=== PATIENT | female | born 2005 | race Caucasian/White ===

== ENCOUNTER 2024-09-15 17:48 | Emergency (ER) | payer OTHER, SELFPAY ==
[2024-09-15 17:50] VITALS: BP 132/93; PULSE 67; RESP 17; TEMP 36.4; O2SAT 100
--- NOTE | 2024-09-15 17:52 | ED.ABDPAIN ---
HPI - Abdominal Pain General Chief Complaint: Abdominal Pain <Dede Gongora PA-C - Last Filed: 09/15/24 17:53> Stated Complaint: abd pain <Dede Gongora PA-C - Last Filed: 09/15/24 17:53> Time Seen by Provider: 09/15/24 19:37 <Dede Gongora PA-C - Last Filed: 09/15/24 17:53> Focused HPI: 19-year-old female with history of asthma presents emergency department for abdominal pain that started 1 hour prior to arrival. Patient states earlier in the week she developed nausea and vomiting. Vomiting has since resolved yesterday began having diarrhea. Today she is now having diffuse abdominal pain, states earlier the pain was concentrated higher and now it seems to be lower in her abdomen. She describes the pain as a cramping and spasmodic sensation. Denies dysuria hematuria, prior abdominal surgeries, fever. GENERAL: Well-appearing, well-nourished, and in no acute distress. HEAD: Normocephalic, atraumatic. CHEST: Clear to auscultation. ?No respiratory distress. HEART: Regular rate and rhythm.? NEURO: ?Alert and oriented x3. Patient screened in triage and initial orders placed.? ?Additional care and disposition to be based upon?diagnostic testing and treatment. <Dede Gongora PA-C - Last Filed: 09/15/24 17:53> Related Data Allergies/Adverse Reactions: Allergies Allergy/AdvReac Type Severity Reaction Status Date / Time cetirizine (From Zyrtec) AdvReac Mild Itching Verified 09/15/24 20:03 fexofenadine (From Yu) AdvReac Mild Mood Verified 09/15/24 20:03 disturbances <Dede Gongora PA-C - Last Filed: 09/15/24 17:53> Exam Narrative: APPEARANCE: No apparent distress. Head: atraumatic. EYES: EOMI, NOSE: Atraumatic NECK: Trachea midline RESPIRATORY: No increased rate of breathing CTAB CARDIOVASCULAR: RRR, ABDOMINAL: Non-distended soft nontender no guarding rebound MUSCULOSKELETAl: No obvious deformities NEURO: Alert. Moving 4/4 extremities SKIN:: Warm, dry. Normal color PSYCHIATRIC: Normal affect <Puneet Chavira MD - Last Filed: 09/15/24 21:11> Course Vital Signs Vital signs: Vital Signs Temperature 97.6 F 09/15/24 17:50 Pulse Rate 67 09/15/24 17:50 Respiratory Rate 17 09/15/24 17:50 Blood Pressure 132/93 H 09/15/24 17:50 Pulse Oximetry 100 09/15/24 17:50 Oxygen Delivery Room Air 09/15/24 17:50 Temperature 97.6 F 09/15/24 17:50 Pulse Rate 67 09/15/24 17:50 Respiratory Rate 17 09/15/24 17:50 Blood Pressure 132/93 H 09/15/24 17:50 Pulse Oximetry 100 09/15/24 17:50 Oxygen Delivery Room Air 09/15/24 17:50 <Dede Gongora PA-C - Last Filed: 09/15/24 17:53> Vital Signs Temperature 97.6 F 09/15/24 17:50 Pulse Rate 67 09/15/24 17:50 Respiratory Rate 17 09/15/24 17:50 Blood Pressure 132/93 H 09/15/24 17:50 Pulse Oximetry 100 09/15/24 17:50 Oxygen Delivery Room Air 09/15/24 17:50 Temperature 97.6 F 09/15/24 17:50 Pulse Rate 67 09/15/24 17:50 Respiratory Rate 17 09/15/24 17:50 Blood Pressure 132/93 H 09/15/24 17:50 Pulse Oximetry 100 09/15/24 17:50 Oxygen Delivery Room Air 09/15/24 17:50 <Puneet Chavira MD - Last Filed: 09/15/24 21:11> MDM - Abdominal Pain MDM Narrative Medical decision making narrative: -Course: 19-year-old female presenting with 5 days of nausea vomiting diarrhea patient given symptomatic treatment. Vital signs are normal she has a benign abdominal exam. CT abdomen pelvis was or screening but after discussing with the patient is unnecessary. Patient is in agreement. Patient be discharged Zofran and Bentyl. -DDX includes but is not limited to: Gastroenteritis, viral syndrome appendicitis gallbladder disease colitis <Puneet Chavira MD - Last Filed: 09/15/24 21:11> Lab Data Result diagrams: 09/15/24 18:25 09/15/24 18:25 <Dede Gongora PA-C - Last Filed: 09/15/24 17:53> Labs: Lab Results 09/15/24 09/15/24 09/15/24 Range/Units 18:25 18:32 18:33 WBC 8.8 (4.5-10.0) K/mm3 RBC 4.36 (4.2-5.4) M/mm3 Hgb 14.1 (12.0-15.0) g/dL Hct 40.4 (37.0-47.0) % MCV 92.7 (80-100) fl MCH 32.3 (26-34) pg MCHC 34.9 (32-36) g/dl RDW 11.8 (11.5-14.5) % Plt Count 349 (150-375) k/mm3 MPV 9.4 (7.4-10.4) fl Immature Gran % (Auto) 0.3 (0-0.5) % Neut % (Auto) 64.5 (45.5-73.1) % Lymph % (Auto) 23.1 (18.3-44.2) % [place] % (Auto) 6.6 (2.6-8.5) % Eos % (Auto) 4.6 H (0-4.4) % Baso % (Auto) 0.9 (0.2-1.2) % Lymph # (Auto) 2.03 (0.9-3.2) K/mm3 [place] # (Auto) 0.6 (0.1-0.6) K/mm3 Eos # (Auto) 0.4 H (0-0.3) K/mm3 Baso # (Auto) 0.1 (0.0-0.1) K/mm3 Abs Immat Gran (auto) 0.03 (0.00-0.031) K/mm3 Absolute Neuts (auto) 5.7 (1.3-6.7) K/mm3 Absolute Nucleated RBC 0.000 (0.0-0.012) K/mm3 Nucleated RBC % 0.0 (0.0-0.2) % Sodium 139 (137-145) mmol/L Potassium 4.2 (3.4-5.0) mmol/L Chloride 107 (98-107) mmol/L Carbon Dioxide 16 L (22-30) mmol/L Anion Gap 16 H (4-12) mmol/L BUN 6 L (7-17) mg/dL Creatinine 0.70 (0.7-1.0) mg/dL Estim Creat Clear Calc 91 ml/min Estimated GFR > 60 (59 - ) Glucose 104 (65-110) mg/dL Calcium 9.7 (8.4-10.2) mg/dL Total Bilirubin 1.5 H (0.2-1.3) mg/dL AST 26 (14-36) U/L ALT 20 (6-35) U/L Alkaline Phosphatase 58 (38-126) U/L Total Protein 7.0 (6.3-8.2) g/dL Albumin 4.6 (3.5-5.1) g/dL Lipase 39 (23-300) U/L Urine Color Yellow (Yellow) Urine Appearance Clear (Clear) Urine pH 5.5 (5.0-9.0) Ur Specific [place] 1.020 (1.001-1.035) Urine Protein Negative (Negative) mg/dL Urine Glucose (UA) Negative (Negative) mg/dL Urine Ketones Trace H (Negative) mg/dL Ur Blood (Man) 1+ H (Negative) Urine Nitrate Negative (Negative) Urine Bilirubin Negative (Negative) Urine Urobilinogen 0.2 (<2.0) mg/dL Leukocyte Esterase Rfl Negative (Negative) RENEE/UL Urine RBC 0-2 (0-2) /hpf Urine WBC 0-5 (0-3) /hpf Ur Squamous Epith Cells Few (Few) /hpf Urine Bacteria None seen /hpf Urine Casts 0-2 POC Urine HCG, Qual Negative (Negative) <Dede Gongora PA-C - Last Filed: 09/15/24 17:53> Lab Results 09/15/24 09/15/24 09/15/24 Range/Units 18:25 18:32 18:33 WBC 8.8 (4.5-10.0) K/mm3 RBC 4.36 (4.2-5.4) M/mm3 Hgb 14.1 (12.0-15.0) g/dL Hct 40.4 (37.0-47.0) % MCV 92.7 (80-100) fl MCH 32.3 (26-34) pg MCHC 34.9 (32-36) g/dl RDW 11.8 (11.5-14.5) % Plt Count 349 (150-375) k/mm3 MPV 9.4 (7.4-10.4) fl Immature Gran % (Auto) 0.3 (0-0.5) % Neut % (Auto) 64.5 (45.5-73.1) % Lymph % (Auto) 23.1 (18.3-44.2) % [place] % (Auto) 6.6 (2.6-8.5) % Eos % (Auto) 4.6 H (0-4.4) % Baso % (Auto) 0.9 (0.2-1.2) % Lymph # (Auto) 2.03 (0.9-3.2) K/mm3 [place] # (Auto) 0.6 (0.1-0.6) K/mm3 Eos # (Auto) 0.4 H (0-0.3) K/mm3 Baso # (Auto) 0.1 (0.0-0.1) K/mm3 Abs Immat Gran (auto) 0.03 (0.00-0.031) K/mm3 Absolute Neuts (auto) 5.7 (1.3-6.7) K/mm3 Absolute Nucleated RBC 0.000 (0.0-0.012) K/mm3 Nucleated RBC % 0.0 (0.0-0.2) % Sodium 139 (137-145) mmol/L Potassium 4.2 (3.4-5.0) mmol/L Chloride 107 (98-107) mmol/L Carbon Dioxide 16 L (22-30) mmol/L Anion Gap 16 H (4-12) mmol/L BUN 6 L (7-17) mg/dL Creatinine 0.70 (0.7-1.0) mg/dL Estim Creat Clear Calc 91 ml/min Estimated GFR > 60 (59 - ) Glucose 104 (65-110) mg/dL Calcium 9.7 (8.4-10.2) mg/dL Total Bilirubin 1.5 H (0.2-1.3) mg/dL AST 26 (14-36) U/L ALT 20 (6-35) U/L Alkaline Phosphatase 58 (38-126) U/L Total Protein 7.0 (6.3-8.2) g/dL Albumin 4.6 (3.5-5.1) g/dL Lipase 39 (23-300) U/L Urine Color Yellow (Yellow) Urine Appearance Clear (Clear) Urine pH 5.5 (5.0-9.0) Ur Specific [place] 1.020 (1.001-1.035) Urine Protein Negative (Negative) mg/dL Urine Glucose (UA) Negative (Negative) mg/dL Urine Ketones Trace H (Negative) mg/dL Ur Blood (Man) 1+ H (Negative) Urine Nitrate Negative (Negative) Urine Bilirubin Negative (Negative) Urine Urobilinogen 0.2 (<2.0) mg/dL Leukocyte Esterase Rfl Negative (Negative) RENEE/UL Urine RBC 0-2 (0-2) /hpf Urine WBC 0-5 (0-3) /hpf Ur Squamous Epith Cells Few (Few) /hpf Urine Bacteria None seen /hpf Urine Casts 0-2 POC Urine HCG, Qual Negative (Negative) <Puneet Chavira MD - Last Filed: 09/15/24 21:11> Discharge Plan Discharge Clinical Impression: Gastroenteritis <Dede Gongora PA-C - Last Filed: 09/15/24 17:53> Patient Disposition: Home, Self-Care <Dede Gongora PA-C - Last Filed: 09/15/24 17:53> Condition: Stable <Dede Gongora PA-C - Last Filed: 09/15/24 17:53> Instructions: Antibiotic Form, Gastroenteritis (DC) <DEBORAH Torres Last Filed: 09/15/24 17:53> Additional Instructions: You were seen in the emergency department for nausea vomiting diarrhea. You can use Bentyl stomach cramps. Use Motrin/Tylenol pain. Use Zofran for nausea. If you develop fevers severe abdominal pain or fever condition is getting worse please return to the ED for re-evaluation. <Dede Gongora PA-C - Last Filed: 09/15/24 17:53> Patient Language: Pashto <DEBORAH Torres Last Filed: 09/15/24 17:53> Prescriptions: New dicyclomine 20 mg tablet 20 mg PO BID Qty: 30 0RF ondansetron 4 mg tablet,disintegrating 4 mg PO Q8H PRN (Reason: nausea and vomiting) Qty: 30 0RF <Dede Gongora PA-C - Last Filed: 09/15/24 17:53> Follow-up/Referrals: PHYSICIAN NOT ON STAFF,NONSTAFF [Non-Staff] - <Dede Gongora PA-C - Last Filed: 09/15/24 17:53>
[2024-09-15 18:35] LABS: Basophils Absolute Auto 0.1 K/mm3 (0.0-0.1); Basophils Percent Auto 0.9 % (0.2-1.2); Eosinophils Absolute Auto 0.4 K/mm3 (0-0.3); Eosinophils Percent Auto 4.6 % (0-4.4); Hematocrit 40.4 % (37.0-47.0); Hemoglobin 14.1 g/dL (12.0-15.0); Immature Granulocyte Absolute 0.03 K/mm3 (0.00-0.031); Immature Granulocyte Percent A 0.3 % (0-0.5); Lymphocytes Absolute Auto 2.03 K/mm3 (0.9-3.2); Lymphocytes Percent Auto 23.1 % (18.3-44.2); Mean Corpuscular HGB Conc 34.9 g/dl (32-36); Mean Corpuscular Hemoglobin 32.3 pg (26-34); Mean Corpuscular Volume 92.7 fl (80-100); Mean Platelet Volume 9.4 fl (7.4-10.4); Monocytes Absolute Auto 0.6 K/mm3 (0.1-0.6); Monocytes Percent Auto 6.6 % (2.6-8.5); Neutrophils Absolute Auto 5.7 K/mm3 (1.3-6.7); Neutrophils Percent Auto 64.5 % (45.5-73.1); Platelet Count Result 349 k/mm3 (150-375); Red Blood Count 4.36 M/mm3 (4.2-5.4); Red Cell Distribution Width 11.8 % (11.5-14.5); White Blood Count 8.8 K/mm3 (4.5-10.0)
[2024-09-15 18:36] LABS: BEDSIDEPREGUCG Negative (Negative)
[2024-09-15 18:45] LABS: Alanine Aminotransferase 20 U/L (6-35); Albumin Level 4.6 g/dL (3.5-5.1); Alkaline Phosphatase 58 U/L (38-126); Anion Gap 16 mmol/L (4-12); Aspartate Amino Transferase 26 U/L (14-36); Bilirubin,Total 1.5 mg/dL (0.2-1.3); Blood Urea Nitrogen 6 mg/dL (7-17); Calcium 9.7 mg/dL (8.4-10.2); Carbon Dioxide 16 mmol/L (22-30); Chloride 107 mmol/L (98-107); Estimated CRCL calculation 91 ml/min; Estimated Glomerular Filt Rate > 60; Glucose 104 mg/dL (65-110); Lipase 39 U/L (23-300); Potassium 4.2 mmol/L (3.4-5.0); Sodium 139 mmol/L (137-145)
[2024-09-15 19:11] LABS: Add Urine Microscopic? YES; Appearance Urine Clear (Clear); Bacteria Urine None Seen /hpf; Bilirubin Urine Negative (Negative); Blood Urine 1+ (Negative); Color Urine Yellow (Yellow); Glucose Urine UA Negative (Negative); Ketones Urine Trace mg/dL (Negative); Leukocyte Esterase Ur Negative LEU/UL (Negative); Nitrate Urine Negative (Negative); Non Pathogenic Casts 0-2; Protein Urine Negative (Negative); RBC Urine 0-2 /hpf (0-2); Squamous Epithelial Cell Urine Few /hpf (Few); Urobilinogen Urine 0.2 mg/dL (<2.0); WBC Urine 0-5 /hpf (0-3); pH Urine 5.5 (5.0-9.0)
[2024-09-15] MEDS: KETOROLAC 15 MG/ML VIAL (*BKC) IV PUSH (20:04)
[2024-09-15] MEDS: ONDANSETRON INJ 4 MG/2 ML VIAL IV PUSH (20:04)
[2024-09-15] MEDS: SODIUM CHLORIDE 0.9% IV 1,000 ML 999 ML IV CONT (20:04)
[2024-09-15] MEDS: DICYCLOMINE HCL 10 MG CAPSULE 20 MG PO (20:04)
--- OUTSIDE RECORDS SUMMARY | 2024-09-15 20:43 | XMS_ITS | Data Portability ---
Author Organization [place] - [facility], [facility] Address [address] [place] [address] Care Team Providers Care Cath Lab Nurse Name Role Phone DIANN ESCALERA Primary Care Provider PATTIE THOMAS [employer]airer [phone] Assessment Encounter Date Assessment Date Assessment LastModified by Organization Details LastModified Time 07/23/2023 07/23/2023 17 min spent with patient on telehealth visit with audio & video capabilities. Additional 5 min spent spent on documentation. Not available 07/23/2023 11:49:44 08/11/2023 08/11/2023 Patient presented to office today for their Annual Wellness Visit. Active problems, PMH, Surgical History, Family History, Social History, Behavioral Health, Current Meds, and Allergies were reviewed and updated as clinically indicated. Discussed risk factors and provided referrals to educational and counseling services as appropriate. [email or web address] Not available 08/11/2023 07:42:57 02/29/2024 02/29/2024 15 min spent on telehealth visit with both audio and video features. Not available 03/01/2024 22:11:06 Plan of Treatment Reminders Order Date Submit Date Provider Last Modified By Organization Details Last Modified Time Details Appointments None recorded. Lab chlamydia trachomatis + neisseria gonorrhoeae rRNA panel, DEVIN + probe, QL, urine 2023 024 [facility], [address], [address], [place], [address], 01/06/202 4 00:36:56 CMP, serum or plasma 2023 024 [facility], [address], [address], [place], [address], 4 21:41:56 lipid panel, serum 2023 024 [facility], [address], [address], [place], [address], 4 21:42:03 hepatitis C Ab, qual, IA, serum or plasma 2023 024 [facility], [address], [address], [place], [address], 4 13:53:15 Referral None recorded. Procedures None recorded. Surgeries None recorded. Imaging None recorded. Medication Orders bupropion HCl XL 300 mg 24 hr tablet, extended release 2022 023 [place] [id number], [address], [address], [place], [address], 3 11:43:30 levalbutero l HFA 45 mcg/actuati on aerosol inhaler 2023 024 [place] [id number], [address], [address], [place], [address], 4 15:57:22 bupropion HCl XL 300 mg 24 hr tablet, extended release 2023 024 [place] [id number], [address], [place], [id number], 4 15:32:55 Patient TargetsNo targets recorded. 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: care instructions [email or web address] Not available 07/23/2023 11:48:06 deciding about stopping your antidepressant Not available 07/23/2023 11:43:26 depression after childbirth: care instructions Not available 07/23/2023 11:43:26 depression and chronic disease: care instructions Not available 07/23/2023 11:43:26 depression treatment: care instructions Not available 07/23/2023 11:43:26 learning about depression during Not available 07/23/2023 11:43:26 Preventing Depression From Coming Back: Care Instructions Not available 07/23/2023 11:43:26 recovering from depression: care instructions Not available 07/23/2023 11:43:26 seasonal affecti ve disorder: care instructions Not available 07/23/2023 11:43:26 suicidal thought s in a family member: care instructions Not available 07/23/2023 11:43:26 anxiety disorder : care instructions Not available 07/23/2023 11:43:26 heavy menstrual periods: care instructions Not available 07/23/2023 11:43:26 attention defici t hyperactivity disorder (ADHD) in adults: care instructions Not available 07/23/2023 11:43:26 Therapy is a vit al part of treating both depression & anxiety. Lifestyle factors are also important! Prioritize eating a healthy diet and getting regular exercise. You should also prioritize your sleep and make sure you are getting adequate rest. If you have any thoughts of hurting yourself or others, please talk to someone or go to the ER. You can also call the National Suicide Hotline. National Suicide Prevention Lifeline Consider telehealth for counseling. [employer] has some good options. There are also good telehealth counseling services online. Not available 07/23/2023 11:48:52 08/11/2023 [id number] advance directiv es: care instructions Not available 08/11/2023 15:54:04 deciding about stopping your antidepressant Not available 08/11/2023 15:54:04 depression after childbirth: care instructions Not available 08/11/2023 15:54:05 depression and chronic disease: care instructions Not available 08/11/2023 15:54:04 depression treatment: care instructions Not available 08/11/2023 15:54:05 learning about depression during Not available 08/11/2023 15:54:04 Preventing Depression From Coming Back: Care Instructions Not available 08/11/2023 15:54:05 recovering from depression: care instructions Not available 08/11/2023 15:54:05 seasonal affecti ve disorder: care instructions Not available 08/11/2023 15:54:04 suicidal thought s in a family member: care instructions Not available 08/11/2023 15:54:05 anxiety disorder : care instructions Not available 08/11/2023 15:54:05 attention defici t hyperactivity disorder (ADHD) in adults: care instructions Not available 08/11/2023 15:54:04 Please make sure to sign up for the portal for [employer]. The commercial front load driver can send you a link to your email on file if you have not received a link to set up your account. If you have any trouble with using the portal, the number to call for assistance is: [phone]. Your labs will be immediately available for you to view in your portal, even prior to my review. It can take me 7-10 business days to go through and comment on labs for my interpretation. Your annual wellness exam (aka preventive exam aka annual physical) is an important opportunity to discuss disease prevention and current health guidelines. Other visits to our our office are for specific problems, but this is about preventing them. My recommendations are to maintain good portion sizes of healthy meals with a majority of balanced, non-processed food. You should engage in physical exercise daily for 30-60 minutes or get 150 minutes of vigorous activity per week. Any form of exercise (including walking) can count if you challenge yourself and get your heart rate up. Typically, just being on your feet at your place of employment doesn't count if you aren't feeling like you had a workout during your day. Muscle builds little factories that give you energy and stamina and helps you raise your metabolism. People who include resistance or strength training in their exercise have better metabolism, cardiac health, bone density, and regional intermodal truck driver mobility. However, if you don't control calories that you eat then the balance is in the wrong direction for weight control. Metabolism does slow as you get older, so building more muscle can help combat this! Please get adequate sleep and rest. Screen time, including your computer and phone, can add up quickly and contributes to many medical problems and chronic insomnia. Call if you have any new signs or symptoms that arise over the upcoming year. This is what a problem-focused visit is for (do not save them up for next year's wellness exam). Remember the shower test to check yourself daily or weekly for changes in your body. Infections are another common cause of serious disease or even in our society. Many of the worst of these are minimized or even prevented by getting all of your vaccines updated. I recommend a flu shot each Fall at every age to prevent illness in you and those around you. If you do get an infection with significant symptoms or won't go away, you'll need to be seen for evaluation. Protect your hearing from loud noises and your skin from sunburns. If you have any urinary changes or problems from incontinence, please contact us. Advanced directives are recommended and will help medical providers protect your wishes if you are unable to make decisions in a serious situation. After our discussion today, please contact us if you have any further questions. Please make sure we get up to date copies of any living goldman or advanced care planning documents that affect you. All labs drawn today should be on your patient portal within the next seven days. By law, the labs will auto-publish to your portal, so you may see your labs before I am able to get my interpretation on them. Since I am reviewing hundreds of labs per week, give me 7 days to tell you my thoughts on them, which should then be visible in your portal. As a rule, something that is flagged as abnormal is not necessarily anything concerning or worth worrying over. Any referrals or imaging should be notified to you within 3 weeks, so call if you do not get this information. Not available 08/11/2023 13:19:03 Education was provided on healthy nutrition, including a diet rich in fruits and vegetables, minimizing simple carbohydrates, salt, and saturated fats. Encouraged regular cardiovascular exercise such as walking at least 30 minutes daily, 5 times per week. Emphasized preventive health measures and community-based lifestyle interventions to help reduce health risks and promote healthy living. Schedule next annual exam in 1 year. [email or web address] Not available 08/11/2023 07:42:57 02/29/2024 [id number] deciding about stopping your antidepressant Not available 02/29/2024 15:32:41 depression after childbirth: care instructions [email or web address] Not available 02/29/2024 15:32:41 depression and chronic disease: care instructions Not available 02/29/2024 15:32:41 depression treatment: care instructions Not available 02/29/2024 15:32:41 learning about depression during Not available 02/29/2024 15:32:42 Preventing Depression From Coming Back: Care Instructions Not available 02/29/2024 15:32:41 recovering from depression: care instructions Not available 02/29/2024 15:32:41 seasonal affecti ve disorder: care instructions Not available 02/29/2024 15:32:41 suicidal thought s in a family member: care instructions Not available 02/29/2024 15:32:41 attention defici t hyperactivity disorder (ADHD) in adults: care instructions Not available 02/29/2024 15:32:42 Make an appointm ent with the health care liaison to discuss your reaction to sertraline. If this is a true allergy and you should avoid SSRIs, let me know and we'll refer you to psychiatry. If they think it is safe to retrial an SSRI, let me know and we can trial a new SSRI for the symptoms we discussed. Not available 02/29/2024 15:36:42 Reason for Referral None Reported. Results Created Date Observation Date Name Description Value Unit Range Abnormal Flag Note LastModifiedBy Organization Detail LastModifiedTime 08/13/19 24 08/13/2023 COMP. METAB OLIC PANEL glu 89 mg/dL 70-100 normal Not Available [facility] [address], [place], [address], 08/13/2023 21:41:56 08/13/19 24 08/13/2023 COMP. METAB OLIC PANEL Na 138 mmol/ L 134-14 3 normal Not Available [facility] [address] [place] [address] [address], [place], [address], 08/13/2023 21:41:56 08/13/19 24 08/13/2023 COMP. METAB OLIC PANEL K 4.4 mmol/ L 3.5-5. 2 normal Not Available [facility] [address] [place] [address] [address], [place], [address], 08/13/2023 21:41:56 08/13/19 24 08/13/2023 COMP. METAB OLIC PANEL cL 105 mmol/ L 95-108 normal Not Available [facility] [address] [place] [address] Rd [address], [place], [address], 08/13/2023 21:41:56 08/13/19 24 08/13/2023 COMP. METAB OLIC PANEL CO2 25 mmol/ L 22-32 normal Not Available [facility] [address] [place] [address] [address], [place], [address], 08/13/2023 21:41:56 08/13/19 24 08/13/2023 COMP. METAB OLIC PANEL Ca 9.8 mg/dL 8.9-10 .5 normal Not Available [facility] [address] [place] [address] [address], [place], [address], 08/13/2023 21:41:56 08/13/19 24 08/13/2023 COMP. METAB OLIC PANEL BUN 8 mg/dL 6-25 normal Not Available [facility] [address] [place] [address] [address], [place], [address], 08/13/2023 21:41:56 08/13/19 24 08/13/2023 COMP. METAB OLIC PANEL creat 0.73 mg/dL 0.58-1 .04 normal Not Available [facility] [address], [place], [address], 08/13/2023 21:41:56 08/13/19 24 08/13/2023 COMP. METAB OLIC PANEL egfrcr 121 mL/mi n/1.7 3m^2 >60 normal The CKD-E PI 2020 equat ion has not been valid ated in pregn ant women . Not Available [facility] [address] [place] [address] Rd [address], [place], [address], 08/13/2023 21:41:56 08/13/19 24 08/13/2023 COMP. METAB OLIC PANEL tpro 6.8 g/dL 5.9-7. 9 normal Not Available [facility] [address], [place], [address], 08/13/2023 21:41:56 08/13/19 24 08/13/2023 COMP. METAB OLIC PANEL alb 4.4 g/dL 3.4-5. 3 normal Not Available [facility] [address], [place], [address], 08/13/2023 21:41:56 08/13/19 24 08/13/2023 COMP. METAB OLIC PANEL A/G ratio 1.8 g/dL 1.0-2. 5 normal Not Available [facility] [address], [place], [address], 08/13/2023 21:41:56 08/13/19 24 08/13/2023 COMP. METAB OLIC PANEL bili, tot 1.2 mg/dL 0.3-1. 2 normal Not Available [facility] [address], [place], [address], 08/13/2023 21:41:56 08/13/19 24 08/13/2023 COMP. METAB OLIC PANEL alk phos 57 IU/L 33-130 normal Not Available [facility] [address], [place], [address], 08/13/2023 21:41:56 08/13/19 24 08/13/2023 COMP. METAB OLIC PANEL AST 15 IU/L 10-42 normal Not Available [facility] [address], [place], [address], 08/13/2023 21:41:56 08/13/19 24 08/13/2023 COMP. METAB OLIC PANEL ALT 12 IU/L 7-52 normal Not Available [facility] [address], [place], [address], 08/13/2023 21:41:56 08/13/19 24 08/13/2023 LIPID PANEL chol 158 mg/dL <200 normal Not Available [facility] [address], [place], [address], 08/13/2023 21:42:02 08/13/19 24 08/13/2023 LIPID PANEL trig 70 mg/dL <150 normal Not Available [facility] [address], [place], [address], 08/13/2023 21:42:02 08/13/19 24 08/13/2023 LIPID PANEL HDL 53 mg/dL 50-150 normal Not Available [facility] [address], [place], [address], 08/13/2023 21:42:02 08/13/19 24 08/13/2023 LIPID PANEL LDL-C 89 mg/dL <100 normal Not Available [facility] [address], [place], [address], 08/13/2023 21:42:02 08/13/19 24 08/13/2023 LIPID PANEL VLDL-C 16 mg/dL <30 normal Not Available [facility] [address] [place] [address] [address], [place], [address], 08/13/2023 21:42:02 08/13/19 24 08/13/2023 LIPID PANEL non-HDL 105 mg/dL <130 normal Not Available [facility] [address] [place] [address] [address], [place], [address], 08/13/2023 21:42:02 08/13/19 24 08/13/2023 LIPID PANEL chol/HDL 3.0 ratio <5.0 normal Not Available [facility] [address] [place] [address] [address], [place], [address], 08/13/2023 21:42:02 08/13/19 24 08/13/2023 LIPID PANEL LDL/HDL mhfac 1.7 ratio <3.0 normal Not Available [facility] [address] [place] [address] [address], [place], [address], 08/13/2023 21:42:02 08/13/19 24 08/13/2023 CT/GC (URIN E), CHLAM YDIA/ N. GONOR RHOEA E CT CT NEG CT neg normal Not Available [facility] [address], [place], [address], 08/14/2023 00:36:56 08/13/19 24 08/13/2023 CT/GC (URIN E), CHLAM YDIA/ N. GONOR RHOEA E GC GC NEG GC neg normal Not Available [facility] [address], [place], [address], 08/14/2023 00:36:56 08/13/19 24 08/13/2023 HEPAT ITIS C ANTIB KRISTINE, W/REF PRERNA TO [facility] ([id number]) ahcv NONREA CTIVE nonrea ctive normal A nonre activ e resul t does not exclu de the possi bilit y of expos ure to or infec tion with HCV. HCV antib odies may be undet ectab le in some stage s of the infec tions and in some clini adal condi tions . Heter ophil antib odies may inter fere with immun oassa y testi ng. Not Available [facility] [address], [place], [address], 08/16/2023 13:53:15 Result Notes None recorded. Problems Name Problem SNOMED Code Status Onset Date Resolution Date Notes Provider Name and Address Organization Details Recorded Time Moderate recurren t major depressi on Active 2022 Diann Escalera MD [address], [place], [address] , [facility] 3 22:16:42 Attentio n deficit hyperact ivity disorder 867762899 Active 2022 Diann Escalera MD [address], [place], [address] , [facility] 3 22:16:37 Generali zed anxiety disorder 82891726 Active 2022 Diann Escalera MD [address], [place], [address] , [facility] 3 22:16:40 Mild intermit tent asthma 039860937 Active 2022 Diann Escalera MD [address], [place], [address] , [facility] 3 22:19:24 Allergic rhinitis 91908252 Active 2022 Diann Escalera MD [address], [place], [address] , [facility] 3 22:19:41 History of anaphyla xis 23364409245 175000 Active 2022 Diann Escalera MD [address], [place], [address] [place] [address] , [facility] 3 22:20:13 Electron ic cigarett e user 394960769 Active 2022 Diann Escalera MD [address], [place], [address] [place] [address] , [facility] 3 22:20:32 Abscess of skin and/or subcutan eous tissue 12504159 Completed 202203/17/2023 Diann Escalera MD [address], [place], [address] [place] [address] , [facility] 3 23:50:42 Anal fissure 40582092 Completed 202207/23/2023 Diann Escalera MD [address], [place], [address] [place] [address] , [facility] 3 11:47:41 Depressi on screenin g Completed 202103/17/2023 Positive screen for depressi on. Problem Code: Z13.31; Problem Code Type: ICD-10; Diann Escalera MD [address], [place], [address] , [facility] 3 23:51:15 General examinat ion of patient Completed 202107/23/2023 Pt thinks she is up to date on vaccines . Will need to confirm when we have records. Will get fasting labs today & do STI screenin g. Did vocational counselor that IUD is effectiv e control and a good long-ter m option Diann Escalera MD [address], [place], [address] , [facility] 3 11:47:56 [place] [id number] Completed 202107/23/2023 Unclear etiology of hot flashes- will check thyroid & CBC. Patient to po ortiz with commercial front load driver regardin g IUD- [facility] ed her to bring this up with them as well. Problem Code: R23.2; Problem Code Type: ICD-10; Diann Escalera MD [address], [place], [address] , [facility] 3 11:47:53 [facility] [id number] Completed 202107/23/2023 [facility] ed healthy diet, exercise . Problem Code: E66.3; Problem Code Type: ICD-10; Diann Escalera MD [address], [place], [address] , [facility] 3 11:47:58 Body mass index 25-29 - overwe ht 782812663 Completed 202103/17/2023 Problem Code: Z68.25; Problem Code Type: ICD-10; Diann Escalera MD [address], [place], [address] , [facility] 3 23:50:52 New patient screenin g status [id number] Completed 202103/17/2023 Will work on obtainin g prior medical records. Diann Escalera MD [address], [place], [address] , [facility] 3 23:50:28 Attentio n deficit hyperact ivity disorder , combined type 53915819 Completed 202107/23/2023 Diagnose d in 2020 by licensed psycholo gist. Previous ly did not like the on/off feeling of concerta . Currentl y on Stratter a 100mg and feels like symptoms well-man aged. Will continue . Problem Code: F90.2; Problem Code Type: ICD-10; Diann Escalera MD [address], [place], [address] , [facility] 3 11:47:51 Tobacco dependen ce caused by cigarett es 10017668282 351238 Active 2021 Not Available [facility] 3 18:03:30 Menorrha wayne 414540379 Active 2022 Diann Escalera MD [address], [place], [address] , [facility] 3 11:42:52 Hot sweats 621931511 Active 2022 Diann Escalera MD [address], [place], [address] , [facility] 3 11:42:57 Loss of hair 960067767 Active 2022 Diann Escalera MD [address], [place], [address] , [facility] 3 11:46:52 Adult health examinat ion Active 2023 Diann Escalera MD [address], [place], [address] , [facility] 4 13:08:18 Hepatiti s B non-immu ne 630740321 Completed 202303/01/2024 Diann Escalera MD [address], [place], [address] , [facility] 4 22:12:21 Problem Notes None recorded. Procedures Surgical History Date Name Laterality Status Provider Name and Address Organization Details Recorded Time 08/11/19 Advance Care Planning Discussion completed Herminia Pena RN [facility] 08/11/2023 07:42:58 01/03/20 24 Depression Screening Discussion completed Diann Escalera MD [address], [place], [address], [facility] 08/16/2023 11:42:45 08/11/19 24 Tobacco Cessation Discussion completed Herminia Pena RN [facility] 08/11/2023 07:42:58 08/11/19 24 Adult HME completed Herminia Pena RN [facility] 08/11/2023 07:42:57 08/09/19 22 Tonsillectomy completed Aspen Swan [facility] 01/27/2023 14:50:16 02/07/20 21 tonsillectomy completed Not Available [facility] 2022 18:03:13 Imaging Results None recorded. Procedure Notes None recorded. Medical Equipment Implant [employer] Serial Number Lot Number Status Provider Name and Address Organization Details Recorded Time [employer] Y Diann Escalera MD [address], [place], [address], [facility] 01/30/2023 13:49:25 Allergies Allergen ID Allergen Name Allergen Category Reaction Reaction Severity Criticality Documentation Date Start Date Code Code System Note Provider Name and Address Organization Details Recorded Time [id number] Yu medicatio n Not available Not available Not available 11/11/2022 35377 [id number] RxNorm Aspen [facility] 11:50:33 [id number] sertralin e medicatio n Not available Not available Not available 11/11/2022 [id number] RxNorm throa t itchi ng Aspen Roenbeck null, [facility] 11:51:10 [id number] animal dander environme nt Not available Not available Not available 02/27/20232021 [id number] UNK Not Available [facility] 18:19:51 Medications Name Sig Start Date Stop Date Status Note LastModified by Organization Details LastModified Time doxycycline hyclate 100 mg capsule TAKE 1 CAPSULE BY MOUTH EVERY DAY WITH FOOD. AVOID LAYING DOWN FOR 1 HOUR AFTER TAKING MEDICATIO N 11/11 completed Not Available Not Available Not Available azithromyci n 250 mg tablet 11/11 completed Not Available Not Available Not Available Tubersol 5 tub. unit/0.1 mL intradermal injection solution Inject 0.1 mL every day by intraderm al route for 1 day. 07/23 completed Not Available Not Available Not Available doxycycline monohydrate 100 mg tablet Take 1 tablet every day by oral route for 7 days. 12/30 completed Not Available Not Available Not Available tretinoin 0.025 % topical gel APPLY TOPICALLY TO THE AFFECTED AREA AT BEDTIME 07/19 completed Not Available Not Available Not Available doxycycline monohydrate 100 mg capsule TAKE 1 CAPSULE BY MOUTH TWICE DAILY FOR 7 DAYS 03/15 completed Not Available Not Available Not Available omeprazole 20 mg capsule,del ayed release TAKE ONE CAPSULE BY MOUTH ONCE DAILY 30 MINUTES BEFORE FOOD WHEN USING IBUPROFEN 11/11 completed Not Available Not Available Not Available clindamycin phosphate 1 % topical solution APPLY TOPICALLY TO FACE EVERY MORNING 07/19 completed Not Available Not Available Not Available azithromyci n 500 mg tablet TAKE 1 TABLET BY MOUTH AT ONCE 12/30 completed Not Available Not Available Not Available bupropion HCl XL 300 mg 24 hr tablet, extended release Take 1 tablet every day by oral route for 90 days. 2023 active Not Available Not Available Not Avai lable bupropion HCl XL 150 mg 24 hr tablet, extended release TAKE ONE TABLET BY MOUTH ONE TIME DAILY 08/11 completed Not Available Not Available Not Available levalbutero l HFA 45 mcg/actuati on aerosol inhaler INHALE 2 PUFFS EVERY 4 TO 6 HOURS NEEDED active Not Available Not Available No t Available Strattera 100 mg capsule Take 1 capsule every day by oral route for 90 days. 01/27 completed Not Available Not Available Not Available olopatadine 0.6 % nasal spray USE 1 SPRAY IN EACH NOSTRIL TWICE DAILY 12/30 completed Not Available Not Available Not Available Nexplanon 68 mg subdermal implant active Not Available Not Available Not Available Auvi-Q 0.3 mg/0.3 mL injection, auto-inject or INJECT NEEDED FOR SEVERE ALLERGIC REACTION INCLUDING ANAPHYLAX IS DIRECTED active Not Available Not Available No t Available Zafemy 150 mcg-35 mcg/24 hr transdermal patch APPLY 1 PATCH TOPICALLY TO THE SKIN EVERY 7 DAYS 01/27 completed Not Available Not Available Not Available Vitals Date Recorded Body height Respiratory rate Body mass index (BMI) Percentile per age and sex Body mass index (BMI) Body weight Body temperature Heart rate Oxygen saturation Oxygen saturation in Arterial blood by Pulse oximetry Systolic blood pressure Diastolic blood pressure Provider Name and Address Organization Details Last Updated DateTime 4 160.02 cm 18 /min 70 % 23.8 kg/m2 70643.4 8 g 97.8 [degF] 89 /min 100 % 100 % 112 mm[Hg] 74 mm[Hg] Margaret Quiles LPN [facility] 15:42:05 Social History Question Answer Notes LastModified by Organizat ion Details LastModified Time Tobacco Smoking Status Current Some Day Smoker Margaret Quiles LPN [facility] 08/11/2023 15:34:06 Do You Have An Advance Directive? Yes Information not available 11/11/2022 What Is Your Level Of Alcohol Consumption? Occasional Information not available 11/11/2022 Is Blood Transfusion Acceptable In An Emergency? Yes Information not available 11/11/2022 What Is Your Level Of Caffeine Consumption? Occasional [email or web address] Information not available 08/11/2023 Are You Currently Employed? Yes Information not available 01/27/2023 What Type Of Diet Are You Following? REGULAR Information not available 08/11/2023 Which Illicit Or Recreational Drugs Have You Used? Marijuana, Mushrooms Information not available 11/11/2022 Do You Or Have You Ever Used E-cigarettes Or Vape? Current User Of Electronic Cigarettes Vaping [email or web address] Information not available 08/11/2023 What Is The Highest Grade Or Level Of School You Have Completed Or The Highest Degree You Have Received? [id number] Information not available 11/11/2022 What Is Your Occupation? Student Information not available 08/11/2023 How Many Times Per Week Do You Exercise? 1-2 Times Per Week Information not available 08/11/2023 Have There Been Any Changes To Your Family Or Social Situation? No Information no t available 08/11/2023 What Is The Fluoride Status Of Your Home? Unknown Information not available 08/11/2023 How Many Years Have You Used Illicit Or Recreational Drugs? 1 Information not available 01/27/2023 Do You Use Insect Repellent Routinely? No Information not available 08/11/2023 How Often Does Anyone, Including Family Physically Hurt Or Threatened To Hurt You? Never Information not available 08/11/2023 How Often Does Anyone, Including Family, Scream Or Curse At You? Never Information not available 08/11/2023 In The Past 7 Days, How Often Have You Bob White Sleepy During The Daytime? IF Patient Answers Usually Or Always , Please Complete The STOP-Bang Questionnaire Found In The Screening Section. Sometimes Information not available 08/11/2023 Do You Have A Healthcare Power Of Subsurface Augmentee Operator? (If Yes, Please Bring A Copy To The Next Visit) Yes POA Is Mother Information not available 11/11/2022 Do You Have A Living Will?(If Yes, Please Bring A Copy To The Next Visit) Yes Information not available 11/11/2022 Do You Have Any Concerns With Your Hearing? No Information not available 08/11/2023 Do You Have Any Concerns With Your Vision? No Information not available 08/11/2023 How Would You Describe Your General Health Status? Good Information not available 08/11/2023 Do You Have Any Concerns Regarding Your Weight? No Information not available 08/11/2023 Do You Have Regularly Scheduled Dental Visits? Yes Information not available 08/11/2023 IF You Drink Alcohol, How Many Drinks Per Day? IF Patient Drinks More Than The Recommended Daily Intake Of Alcohol (1 Drink Per Day For Women Or 2 Drinks Per Day For Men) Please Complete The CAGE Questionnaire Found In The Screening Section. 1 Information not available 08/11/2023 Are You Eating The Recommended Daily Intake Of Fruit, Vegetables, And Whole Grains? Yes Information not available 08/11/2023 Do You Avoid Fatty Foods? No Information not available 08/11/2023 Do You Avoid Sugary Beverages? No Information no t available 08/11/2023 Do You Ever Decline To Attend Social Events Due To Anxiety? No Information not available 08/11/2023 How Hard Is It For You To Pay For The Very Basics Like Food, Housing, Medical Care, And Heating? Not Very Hard Information not available 08/11/2023 What Is Your Current Pack Years? 10packyears Information not available 01/27/2023 What Is Your Relationship Status? Single [email or web address] Information not available 08/11/2023 Do You Use Your Seat Belt Or Car Seat Routinely? Yes Information not available 11/11/2022 Are You Sexually Active? Yes Information not available 08/11/2023 At What Age Did You Start Smoking Tobacco? 17 Information not available 01/27/2023 Are You Passively Exposed To Smoke? No Information no t available 08/11/2023 Do You Or Have You Ever Used Smokeless Tobacco? [id number] Information not available 08/11/2023 How Much Tobacco Do You Smoke? 0.25 PPD Information not available 08/11/2023 Do You Use Any Illicit Or Recreational Drugs? Yes Information not available 11/11/2022 Do You Use Sunscreen Routinely? Yes [email or web address] Information not available 08/11/2023 Has Tobacco Cessation Counseling Been Provided? Yes Information not available 08/11/2023 How Many Years Have You Smoked Tobacco? 1 Information not available 01/27/2023 Have You Used IV Drugs? No Information not available 11/11/2022 Are You Currently In School? Yes Information not available 11/11/2022 Do You Or Have You Ever Used Any Other Forms Of Tobacco Or Nicotine? Yes Information not available 11/11/2022 How Many Years Have You Used E-cigarettes Or Vape? 1 Information not available 08/11/2023 Sex: Female Functional Status Question Answer Note LastModified by Organizat ion Details LastModified Time Do you have transportation difficulties? No [email or web address] Information not available 08/11/2023 Are you able to care for yourself? Yes Information n ot available 11/11/2022 What is your exercise level? Occasional Information not available 11/11/2022 Mental Status Question Answer Note LastModified by Organization D etails LastModified Time Do you have difficulty concentrating, remembering or making decisions? Yes Information no t available 08/11/2023 Family History Relationship Description Onset Age of this Age Resolved Age Notes LastModified by Organization Details LastModified Time Mother Raynaud's phenomenon [email or web address] Not available 15:31:13 Mother Graves' disease [email or web address] Not available 10/2023 15:31:13 Mother Osteoarthrit is [email or web address] Not available 10/2023 15:31:13 Mother Family history of Graves disease Ruling out autoim mune diseas e [email or web address] Not available 08/11/2023 15:31:13 Mother Headache Ruling out autoim mune diseas e [email or web address] Not available 08/11/2023 15:31:14 Mother Autoimmune disease Ruling out autoim mune diseas e [email or web address] Not available 08/11/2023 15:31:14 Mother Disorder of thyroid gland pt. added direct ly (08/10) [email or web address] Not available 08/10/2023 12:52:22 Mother Arthritis pt. added direct ly (08/10) [email or web address] Not available 08/10/2023 12:53:35 Mother Migraine pt. added direct ly (08/10) [email or web address] Not available 08/10/2023 12:53:42 Maternal Grandfather Hyperlipidem ia [email or web address] Not available 10/2023 15:31:14 Maternal Grandfather Benign essential hypertension [email or web address] Not available 08/11/2023 15:31:14 Maternal Grandfather Mental health problem Not available 13:47:18 Maternal Grandfather Essential hypertension [email or web address] Not available 08/11/2023 15:31:14 Maternal Grandfather Hypertensive disorder pt. added direct ly (08/10) [email or web address] Not available 08/10/2023 12:53:23 Maternal Grandmother Benign essential hypertension [email or web address] Not available 08/11/2023 15:31:14 Maternal Grandmother Essential hypertension [email or web address] Not available 08/11/2023 15:31:14 Maternal Grandmother Disorder of thyroid gland pt. added direct ly (08/10) [email or web address] Not available 08/10/2023 12:52:22 Maternal Grandmother Hypertensive disorder pt. added direct ly (08/10) [email or web address] Not available 08/10/2023 12:53:23 Sister Mental health problem Not available 13:47:53 Sister Disorder of thyroid gland pt. added direct ly (08/10) [email or web address] Not available 08/10/2023 12:52:22 Sister Migraine pt. added direct ly (08/10) [email or web address] Not available 08/10/2023 12:53:42 Sister Mental health problem [email or web address] Not available 02/07 18:00:05 Father Disorder of thyroid gland pt. added direct ly (08/10) [email or web address] Not available 08/10/2023 12:52:22 Maternal Uncle Diabetes mellitus pt. added direct ly (08/10) [email or web address] Not available 08/10/2023 12:52:34 Unspecified Relation Arthritis pt. added direct ly (08/10) [email or web address] Not available 08/10/2023 12:53:35 Unspecified Relation Substance abuse pt. added direct ly (08/10) [email or web address] Not available 08/10/2023 12:53:57 Paternal Grandfather Substance abuse pt. added direct ly (08/10) [email or web address] Not available 08/10/2023 12:53:57 Medical History Condition Response Asthma Y Depression with Anxiety Y Gynecological History Statement/Question Response STIs/STDs N HPV Vaccine Y Current Control Method Implant Age at Menarche 11 Sexually Active? Y Obstetrics History GPAL:G 0 P 0 0 0 0 Immunizations Vaccine Type Date Status Note Provider Nam e and Address Organization Details Recorded Time Tdap 4 completed Peggy Howard DNP [address], [place], [address], [facility] 2024 15:52:17 HepB-CpG 3 completed Diann Escalera MD [address], [place], [address], [facility] 03/28/2023 19:23:22 meningococcal B, OMV 2 completed Aspen Roenbeck null, [facility] 11/11/2022 11:50:15 meningococcal B, OMV 2 completed Aspen Roenbeck null, [facility] 11/11/2022 11:50:15 COVID-19, mRNA, LNP-S, PF, 30 mcg/0.3 mL dose 1 completed Aspen Roenbeck null, [facility] 11/11/2022 11:50:15 COVID-19, mRNA, LNP-S, PF, 30 mcg/0.3 mL dose 1 completed Aspen Roenbeck null, [facility] 11/11/2022 11:50:15 COVID-19, mRNA, LNP-S, PF, 30 mcg/0.3 mL dose 1 completed Aspen Roenbeck null, [facility] 11/11/2022 11:50:15 COVID-19, mRNA, LNP-S, PF, 30 mcg/0.3 mL dose, orestes-sucrose 2 completed Aspen Roenbeck null, [facility] 11/11/2022 11:50:15 COVID-19, mRNA, LNP-S, bivalent, PF, 30 mcg/0.3 mL dose 2 completed Aspen Roenbeck null, [facility] 11/11/2022 11:50:15 Pneumococcal conjugate PCV 13 4 completed Aspen Roenbeck null, [facility] 11/11/2022 11:50:15 Pneumococcal conjugate PCV 13 4 completed Aspen Roenbeck null, [facility] 11/11/2022 11:50:15 Pneumococcal conjugate PCV 13 4 completed Aspen Roenbeck null, [facility] 11/11/2022 11:50:15 Pneumococcal conjugate PCV 13 4 completed Aspen Roenbeck null, [facility] 11/11/2022 11:50:15 Influenza, split virus, trivalent, PF 3 completed Aspen Roenbeck null, [facility] 11/11/2022 11:50:15 Hib (PRP-T) 4 completed Aspen Roenbeck null, [facility] 11/11/2022 11:50:15 Hib (PRP-T) 4 completed Aspen Roenbeck null, [facility] 11/11/2022 11:50:15 Hib (PRP-T) 4 completed Aspen Roenbeck null, [facility] 11/11/2022 11:50:15 meningococcal MCV4P 2 completed Aspen Roenbeck null, [facility] 11/11/2022 11:50:15 Influenza, split virus, quadrivalent, PF 1 completed Aspen Roenbeck null, [facility] 11/11/2022 11:50:15 influenza, unspecified formulation 2 completed Aspen Roenbeck null, [facility] 11/11/2022 11:53:42 MMR 9 completed Not Available [facility] 08/13/2023 12:25:15 polio, unspecified formulation 8 completed Not Available [facility] 08/13/2023 12:25:15 DTaP 8 completed Not Available [facility] 08/13/2023 12:25:15 DTaP 5 completed Not Available [facility] 08/13/2023 12:25:15 meningococcal, unknown serogroups 2 completed Not Available [facility] 08/13/2023 12:25:15 meningococcal, unknown serogroups 5 completed Not Available [facility] 08/13/2023 12:25:15 Tdap 4 completed Diann Escalera MD [address], [place], [address], [facility] 08/11/2023 13:10:13 polio, unspecified formulation 4 completed Not Available [facility] 08/13/2023 12:25:15 polio, unspecified formulation 4 completed Not Available [facility] 08/13/2023 12:25:15 polio, unspecified formulation 4 completed Not Available [facility] 08/13/2023 12:25:15 pneumococcal, unspecified formulation 4 completed Not Available [facility] 08/13/2023 12:25:15 pneumococcal, unspecified formulation 4 completed Not Available [facility] 08/13/2023 12:25:15 pneumococcal, unspecified formulation 4 completed Not Available [facility] 08/13/2023 12:25:15 pneumococcal, unspecified formulation 4 completed Not Available [facility] 08/13/2023 12:25:15 influenza, unspecified formulation 3 completed Not Available [facility] 08/13/2023 12:25:15 influenza, unspecified formulation 1 completed Not Available [facility] 08/13/2023 12:25:15 meningococcal B, unspecified 2 completed Not Available [facility] 08/13/2023 12:25:15 meningococcal B, unspecified 2 completed Not Available [facility] 08/13/2023 12:25:15 HPV, unspecified formulation 7 completed Not Available [facility] 08/13/2023 12:25:15 HPV, unspecified formulation 6 completed Not Available [facility] 08/13/2023 12:25:15 SARS-COV-2 (COVID-19) vaccine, UNSPECIFIED 1 completed Not Available [facility] 08/13/2023 12:25:15 SARS-COV-2 (COVID-19) vaccine, UNSPECIFIED 1 completed Not Available [facility] 08/13/2023 12:25:15 SARS-COV-2 (COVID-19) vaccine, UNSPECIFIED 1 completed Not Available [facility] 08/13/2023 12:25:15 varicella 8 completed Not Available [facility] 08/13/2023 12:25:15 varicella 4 completed Not Available [facility] 08/13/2023 12:25:15 Hib, unspecified formulation 4 completed Not Available [facility] 08/13/2023 12:25:15 Hib, unspecified formulation 8 completed Not Available [facility] 08/13/2023 12:25:15 Hib, unspecified formulation 4 completed Not Available [facility] 08/13/2023 12:25:15 Hib, unspecified formulation 4 completed Not Available [facility] 08/13/2023 12:25:15 Hep A, unspecified formulation 1 completed Not Available [facility] 08/13/2023 12:25:15 Hep A, unspecified formulation 0 completed Not Available [facility] 08/13/2023 12:25:15 DTaP-Hep B-IPV 4 completed Diann Escalera MD [address], [place], [address], [facility] 08/11/2023 13:10:13 DTaP-Hep B-IPV 4 completed Diann Escalera MD [address], [place], [address], [facility] 08/11/2023 13:10:13 DTaP-Hep B-IPV 4 completed Diann Escalera MD [address], [place], [address], [facility] 08/11/2023 13:10:13 rubella 6 completed Diann Escalera MD [address], [place], [address], [facility] 08/11/2023 13:10:13 measles 5 completed MD [address], [place], [address], [facility] 08/11/2023 13:10:13 mumps 5 completed Diann Escalera MD [address], [place], [address], [facility] 08/11/2023 13:10:13 Tdap 4 completed Not Available [facility] 08/13/2023 12:25:15 COVID-19, mRNA, LNP-S, bivalent, PF, 50 mcg/0.5 mL or 25mcg/0.25 mL dose 3 completed Diann Escalera MD [address], [place], [address], [facility] 08/11/2023 13:10:13 Influenza, split virus, quadrivalent, PF 3 completed Diann Escalera MD [address], [place], [address], [facility] 08/11/2023 13:10:13 HepB-CpG 4 completed Diann Escalera MD [address], [place], [address], [facility] 08/16/2023 11:41:07 Past Encounters Encounter ID Performer Location Encounter Start Date Encounter Closed Date Diagnosis/Indication Diagnosis SNOMED-CT Code Diagnosis ICD10 Code Diagnosis Note [id number] Diann Escalera MD [facility] [address] [facility] [address] [place] [address] 11/11/2022 11:46:58 11/11/2022 12:48:14 Moderate recurrent major depression 74864466 F33.1 Diagnosed in 2015 and again in 2020- currently rates symptoms in moderate range.Prev iously tried therapy but not currently establishe d with a therapist. Had negative reaction to sertraline , possibly allergic in nature.Cur rently not on medication .Discussed local options here but also encouraged her to seek assistance through any [facility]/ [facility] health center there.Disc ussed the impact of marijuana on worsening mental health and encouraged her to stop marijuana/ THC use.Consid er wellbutrin but this might worsen anxiety.F/ up in 1-2 months Attention deficit hyperactivity disorder 001844981 F90.9 Diagnosed in [address]Prevshayyu ariky did not like the on/off feeling of concerta.C urrently on Strattera 100mg and feels like symptoms are not well-manag ed but was doing okay at last visit.Susp ect that depression /anxiety and THC use are worsening her focus.Cont inue strattera for now.F/up in 1-2 months Generalize d anxiety disorder 72306969 F41.1 Noted in psychologi adal evaluation in 2019.Pt reports she is still anxious.Pr eviously tried therapy but not currently establishe d with a therapist. Had negative reaction to sertraline , possibly allergic in nature.Cur rently not on medication .Discussed local options here but also encouraged her to seek assistance through any [facility] health center there.Disc ussed the impact of marijuana on worsening mental health and encouraged her to stop marijuana/ THC use.F/up in 1-2 months Electronic cigarette user [id number] Z72.89 Encouraged cessation Patient wa dical record not available [id number] Z76.89 Will re-request prior medical records [id number] Diann Escalera MD _[facility] [address] [facility] [address] [place] [address] 12/30/2022 14:46:42 12/30/2022 15:24:28 Generalized anxiety disorder 83562720 F41.1 Noted in psychologi adal evaluation in 2019.Pt reports she is still anxious. & having a lot of symptoms still.Prev iously tried therapy but not currently establishe d with a therapist. Had negative reaction to sertraline , possibly allergic in nature.Cur rently not on medication .Discussed local options here but also encouraged her to seek assistance through any [facility] there.Disc ussed the impact of marijuana on worsening mental health and encouraged her to stop marijuana/ THC use.F/up in 1-2 months Attention deficit hyperactivity disorder 402453101 F90.9 Diagnosed in [address]Ester romo did not like the on/off feeling of concerta.C urrently on Strattera 100mg and feels like symptoms are not well-manag ed but was doing okay at last visit.Susp ect that depression /anxiety and THC use are worsening her focus.Cont inue strattera for now.F/up in 1-2 months Moderate r ecurrent major depression 55149083 F33.1 Diagnosed in 2014 and again in 2019- still having significan t symptoms.P reviously tried therapy but not currently establishe d with a therapist. Had negative reaction to sertraline , possibly allergic in nature.Cur rently not on medication .Discussed local options here but also encouraged her to seek assistance through any [facility] there.Disc ussed the impact of marijuana on worsening mental health and encouraged her to stop marijuana/ THC use.Will attempt trial of wellbutrin XL 150mg.F/up in 1-2 months Venereal d isease screening [id number] Z11.3 [id number] Diann Escalera MD _[facility] [address] [facility] [address] [place] [address] 01/27/2023 14:46:59 01/27/2023 15:35:25 Moderate recurrent major depression 40857095 F33.1 Diagnosed in 2014 and again in 2019- still having significan t symptoms.P reviously tried therapy but not currently establishe d with a therapist. Had negative reaction to sertraline , possibly allergic in nature.We have previously discussed local options here but also encouraged her to seek assistance through any [facility] health center.Dis cussed the impact of marijuana on worsening mental health and encouraged her to stop marijuana/ THC use.Contin ue wellbutrin 150mg. Generalize d anxiety disorder 71095200 F41.1 Diagnosed in 2014 and again in 2019- still having significan t symptoms.P reviously tried therapy but not currently establishe d with a therapist. Had negative reaction to sertraline , possibly allergic in nature.We have previously discussed local options here but also encouraged her to seek assistance through any [facility]/ behavioral health center.Dis cussed the impact of marijuana on worsening mental health and encouraged her to stop marijuana/ THC use.Contin ue wellbutrin 150mg.If anxiety worsening, consider addition of buspirone. Attention deficit hyperactivity disorder [id number] F90.9 Diagnosed in 2019 by licensed psychologi .Ester demetrius did not like the on/off feeling of concerta.H as been on Strattera 100mg but felt symptoms weren't super well-manag ed.Suspect that depression /anxiety and THC use are worsening her focus.STOP strattera. Continue wellbutrin XL 150mg. Abscess of skin and/or subcutaneous tissue [id number] L02.91 Small developing abscess on vulva vs cyst.Curre ntly too indurated for incision & drainage.E ncouraged pt to do warm compresses .We will start oral doxycyclin e and if it gets larger and softer, advised patient that she could come in for incision and drainage procedure. Discussed that it may drain on its own.Encour age patient not to try to dwain or incise the lesion herself. Anal fissure [id number] K6 0.2 Discussed that the anal fissure is a likely cause of rectal bleeding.D iscussed the need to avoid constipati on and keep bowel movements soft.If fissure is not healing after the next month or rectal bleeding continues, would recommend gastroente rology referral. [id number] Diann Escalera MD _[facility] [address] [facility] [address] [place] [address] 03/15/2023 15:28:18 03/15/2023 16:32:35 Moderate recurrent major depression [id number] F33.1 Diagnosed in 2014 and again in 2019- still having significan t symptoms but possibly better after starting wellbutrin .Previousl y tried therapy but not currently establishe d with a therapist. Had negative reaction to sertraline , possibly allergic in nature.We have previously discussed local options here but also encouraged her to seek assistance through any [facility] behavioral health center.Dis cussed the impact of marijuana on worsening mental health and encouraged her to stop marijuana/ THC use- pt has been off marijuana for 1-2 weeks.Cont inue wellbutrin 150mg.F/up in 6 months. Generalize d anxiety disorder [id number] F41.1 Diagnosed in 2014 and again in 2019- still having significan t symptoms.P reviously tried therapy but not currently establishe d with a therapist. Had negative reaction to sertraline , possibly allergic in nature.We have previously discussed local options here but also encouraged her to seek assistance through any [facility] behavioral health center.Dis cussed the impact of marijuana on worsening mental health and encouraged her to stop marijuana/ THC use- pt has been off marijuana for 1-2 weeks.Cont inue wellbutrin 150mg.If anxiety worsening, consider addition of buspirone. Attention deficit hyperactivity disorder 992506526 F90.9 Diagnosed in 2019 by licensed psychologi .Laurenharis romo did not like the on/off feeling of concerta.H as been on Strattera 100mg but felt symptoms weren't super well-manag ed.Suspect that depression /anxiety and THC use are worsening her focus, but she has been off marijuana for 1-2 weeks.Pt has had some improvemen t on wellbutrin .Continue wellbutrin XL 150mg. Drug of abuse screen [id number] Z02.83 Pt requesting drug screen to see if she still has THC in her system.Ora l drug screen performed in office (paper order placed). Tuberculos is screening 891981098 Z11.7 TB skin test placed for school. [id number] DILAN Thornton _[employer] [address] [address] 03/18/2023 15:24:49 03/18/2023 19:13:12 Tuberculosis screening [id number] Z11.1 [id number] Diann Escalera MD _[employer] [facility] [address] [address] 03/18/2023 15:45:46 03/21/2023 22:36:13 Hepatitis B screening required 768752054 Z76.89 [id number] Diann Escalera MD _[employer] [facility] [address] [facility] [address] [place] [address] 03/25/2023 10:35:43 03/25/2023 11:11:38 Active or passive immunization 948151142 Z23 OK per Dr. Escalera [id number] Diann Escalera MD _[facility] [address] [place] [address] 07/23/2023 10:45:17 07/23/2023 11:53:39 Generalized anxiety disorder [id number] F41.1 Diagnosed in 2014 and again in 2019- still having significan t symptoms.P reviously tried therapy but not currently establishe d with a therapist. Had negative reaction to sertraline , possibly allergic in nature.We have previously discussed local options here but also encouraged her to seek assistance through any [facility]/ [facility]. 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 F/up in 1 month Moderate r ecurrent major depression 21671998 F33.1 Diagnosed in 2014 and again in 2019- still having significan t symptoms.P reviously tried therapy but not currently establishe d with a therapist. Had negative reaction to sertraline , possibly allergic in nature.We have previously discussed local options here but also encouraged her to seek assistance through any [facility]. 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 F/up in 1 month Attention deficit hyperactivity disorder 397159491 F90.9 Diagnosed in 2019 by licensed psychologi stDaksha elisesuki did not like the on/off feeling of concerta.H as been on Strattera 100mg but felt symptoms weren't super well-manag ed.Suspect that depression /anxiety and THC use are worsening her focus, but she has been off marijuana for 1-2 weeks.Pt has had some improvemen t on wellbutrin .On wellbutrin XL 150mg.Incr ease to 300mg.F/up in 1 month Menorrhagia [id number] N9 2.0 Possibly related to nexplanon. Encouraged her to reach out to commercial front load driver who placed it and see if they recommend removal vs short course of OCP to regulate bleeing or not.Will need thyroid screen at physical. Hot sweats 951930207 R61 Pt has experience d this symptom previously .Will need CBC & thyroid studies at follow-up. Loss of hair 604505080 L 65.9 Expect likely iron deficiency vs telogen effluvium as etiology.W ill get iron panel & thyroid testing at upcoming physical [id number] Diann Escalera MD [facility] [address] [place] [address] 08/11/2023 15:30:50 08/11/2023 16:12:15 Adult health examination 648362341 Z00.00 - Vaccines: Completed gardasil. TDAP due 2023. Up to date on flu & covid vaccines.- Mammogram: - Pap smear: Start at age 21.- Colonoscop y:- DEXA:- Advanced directives : None on file. Standardiz ed adult depression screening tool completed [id number] 18574 Z13.31 Negative for significan t depressive symptoms today Mild inter mittent asthma 535941938 J45.20 Controlled .Uses PRN levalbuter ol sparingly. Moderate r ecurrent major depression 44128973 F33.1 Diagnosed in 2014 and again in 2019- now controlled and hopefully in remission, but will have to monitor.Pr eviously tried therapy but not currently establishe d with a therapist. Had negative reaction to sertraline , possibly allergic in nature.We have previously discussed local options here but also encouraged her to seek assistance through any [facility]/ behavioral health center. 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 F/up in 6 months Generalize d anxiety disorder 76777837 F41.1 Diagnosed in 2014 and again in 2019- now controlled and hopefully in remission, but will have to monitor.Pr eviously tried therapy but not currently establishe d with a therapist. Had negative reaction to sertraline , possibly allergic in nature.We have previously discussed local options here but also encouraged her to seek assistance through any [facility]/ behavioral health center. 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 F/up in 6 months Attention deficit hyperactivity disorder 654059338 F90.9 Diagnosed in [address]Laurenharis demetrius did not like the on/off feeling of concerta.H as been on Strattera 100mg but felt symptoms weren't super well-manag ed.Suspect that depression /anxiety and THC were worsening her focus, but she has been off marijuana for quite some time now.Pt has had improvemen t on wellbutrin .On wellbutrin XL 300mg.Cont inue current regimen.F/ up in 6 months Hepatitis C screening 41 8724301 Z11.59 Electronic cigarette user 705608776 Z72.89 Encouraged cessation and discussed [place] quitline. Active or passive immunization 242043543 Z23 Counseled about the risks and benefits of the listed vaccines. VIS sheets were provided. States that there is no known allergy to any of these vaccines or their components . Discussed some common reactions to the immunizati on are fever, redness, soreness & swelling at the injection site, rash, mild crankiness , tiredness, loss of appetite. Warm or cool damp cloth placed over the injection site may help reduce soreness. Over-the-c ounter medication s such as acetaminop hen may be used for discomfort or fever. Parent or guardian should call for high fever, significan t swelling or redness at injection site, difficulty breathing, or any other concerns. All questions were answered. Venereal d isease screening 688823704 Z11.3 Body mass index 20-24 - normal 960069617 Z68.23 [id number] Diann Escalera MD PC_[facility] [address] [address] 08/13/2023 12:20:41 08/13/2023 14:16:24 [id number] Diann Escalera MD _[facility] [address] [place] [address] 02/29/2024 14:59:52 02/29/2024 15:41:37 Moderate recurrent major depression 43184173 F33.1 Less well controlled at present/ in exacerbati on.Agree that patient does have some features of possible PMDD.Diagn osed in 2014 and again in 2019.Previ ously tried therapy but not currently establishe d with a therapist. Had negative reaction to sertraline , possibly allergic in nature.We have previously discussed local options here but also encouraged her to seek assistance through any [facility] center. 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 Discussed that SSRIs are the initial treatment for PMDD. Given the possible reaction to sertraline , I have encouraged her to discuss reaction with health care liaison. If they think it is safe to re-challen ge with an SSRI, could consider addition of SSRI.If they do think her reaction to sertraline was allergic, then would likely need referral to psychiatry .Pt to schedule appt and to let me know the outcome.F/ up in 6 months Generalize d anxiety disorder 22150820 F41.1 Less well controlled at present/ in exacerbati on.Agree that patient does have some features of possible PMDD as well.Diagn osed in 2014 and again in 2019.Previ ously tried therapy but not currently establishe d with a therapist. Had negative reaction to sertraline , possibly allergic in nature.We have previously discussed local options here but also encouraged her to seek assistance through any [facility]. 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 Discussed that SSRIs are the initial treatment for PMDD. Given the possible reaction to sertraline , I have encouraged her to discuss reaction with health care liaison. If they think it is safe to re-challen ge with an SSRI, could consider addition of SSRI.If they do think her reaction to sertraline was allergic, then would likely need referral to psychiatry .Pt to schedule appt and to let me know the outcome.F/ up in 6 months Attention deficit hyperactivity disorder 199077585 F90.9 Controlled .Diagnosed in [address]Previou elisesuki did not like the on/off feeling of concerta.H as been on Strattera 100mg but felt symptoms weren't super well-manag ed.Suspect that depression /anxiety and THC were worsening her focus, but she has been off marijuana for quite some time now.Pt has had improvemen t on wellbutrin .On wellbutrin XL 300mg.Cont inue current regimen.F/ up in 6 months Mild inter mittent asthma 559148789 J45.20 Controlled .Uses PRN levalbuter ol sparingly. [id number] Peggy Howard, SELENA _[facility] [address] [facility] [address] [place] [address] 2024 15:32:42 2024 18:48:07 Vaccination needed [id number] 31295 Z23 Health Concerns Section Related Observation LastModified by Organization Detai ls LastModified Time None Recorded Concern Status LastModified by Organization Details LastModified Time None Recorded Advance Directives Directive Y: Payers Encounter Date Sequence Insurance Name Policy Number Policy Correa Covered Member ID Correa Member ID Guarantor Name 07/23/2023 1 [employer] (EPO) [id number] [place] [id number] 08/11/2023 1 [employer] (EPO) [id number] [place] [id number] [place] 08/13/2023 1 [employer] (EPO) [id number] [place] [id number] [place] 02/29/2024 1 [employer] (EPO) [id number] [place] [id number] [place] 2024 1 [employer] (EPO) [id number] [place] [id number] [facility] Notes Date Note Type Note Provider Name and Address Organization Details Recorded Time 07/23/2023 text/html Name, , Addre ss match profile {{yes* no}}Same insurance {{yes* no}}Currentl y in [place] {{yes* no}}Time on phone: 7 min 16 seconds Mood:Patient is here to f/uanxiety and depression. Since the last visit for this issue, he/she's symptoms are {{worsening* improv ing stable}}. Patient is {{consistently with taking medication daily* not consistent with medication daily isn't on medication for anxiety}}. Triggers for anxiety include {{ unsure#}}. Patient is currently engaged in the following to help anxiety:counseling: {{yes no*}}. She is not getting therapy now. She says there are 3 free ones at school but doesn't know about therapy at home. regular exercise: {{yes* no}}meditati on: {{yes no*}}Addition al symptoms related to anxiety:reduced appetite: {{yes no*}}difficul ty sleeping: {{yes* no}}irritabi lity: {{yes* no}}inabilit y to perform normal activities: {{yes* no}}forgetfu lness: {{yes* no}}difficul ty concentrating: {{yes* no}} Pt states she has been more depressed than usually; she reports anger and sadness and excessive worrying. Says it started getting worse after a month into the semester. She says it has been building since then. She says school has been okay. States she is feeling more anger & sadness but does feel anxious all the time. She states she hasn't used weed for at least 60 days. 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 Hormones:Patient is concerned with her hormones. Pt states something has to be off She reports hair loss and a 24 day long period. Stopped for a few days and now she is bleeding again. She reports her period being very heavy. She reports seeing clots as well but it has gotten so annoying that she has stopped paying attention. She also has been having hot flashes. The hot flashes come on very sudden. Facial flushing. She reports this has been happening for the past few months. She got her nexplanon placed in December at the [facility]. Diann Escalera MD [address], [place], [address], [facility] 07/23/2023 11:50:00 08/11/2023 text/html She presents tomari gomez for an evaluation and follow-up on her general health. The patient comes to the office today for her routine annual exam. Overall, she has been feeling {{well* fair poor}} .She maintains a diet that is {{healthy consistin g of regular food* gluten free dairy free low carb high in carbohydrates high in processed foods paleo vegetar zachery vegan keto}}.Sh e typically exercises {{on a regular basis infrequently but trying to improve* rarely nev er}}, about {{}} days per week for approximately {{}} minutes each time. It usually consists of {{cardio weight lifting cardio & weight training yoga walki ng running other}}. The patient reports {{feeling safe at home* not feeling safe at home}}. She states that she {{does does not*}} have concerns about her sleep. She sleeps {{<5 hours 5-6 hours 6-7 hours 7-8 hours 8-9 hours* >9 hours}} per night. She sees the dentist {{biannually* jessie dhaliwal rarely never}} and visits the eye doctor {{annually* infrequ ently never}}. She {{is currently using has used* has never used}} tobacco products. She is still vaping regularly. She reports {{never drinking regularly drinking* rarely drinking}} alcohol. The amount of alcohol intake is {{ 4#}} drinks per {{day week* month}} . Preventative health maintenance:Most recent mammogram was done on {{ n/a due to age#}}Most recent Pap smear was done on {{ n/a due to age#}}Colon Cancer Screening: {{n/a due to age* up to date needs to be scheduled/ordered d eclined}} Immunizations:Tdap: {{up to date* will be updated today declined unkn own}}Influenza vaccine: {{up to date* will be updated today declined unkn own}}Pneumonia vaccine: {{n/a due to age* up to date will be updated today declined unkn own}}Shingrix vaccine: {{n/a due to age* first dose received up to date never, discussed given today declined unkn own}}RSV vaccine (60 and older): {{n/a due to age* up to date declined discu ssed and recommended}}HPV vaccine: {{n/a due to age completed* decl ined unknown}}Covid 19 vaccine: {{completed w/ most recent booster* completed w/o most recent booster declined crook s had 1st injection only given today}} Other screenings:DEXA: {{n/a due to age* 2022 2021 2020 2019 2018 2017 201 7 or earlier}}She {{is currently* is not currently has never been}} sexually active and {{does does not*}} wish to have STD testing done. She {{has has not*}} gone through menopause. LMP was {{ 08/11/2022#}} date. She {{does* does not}} have concerns about her periods that she wants addressed today. She {{using* not using}} control. Her form of control is {{n/a OCPs Nuvaring Nexplanon* Depo shot IUD condom par tner with vasectomy}}. The patient {{had fasting labs drawn prior to today's visit. They were reviewed in detail with patient is fasting today for labs to be drawn is not fasting today. Patient will return for fasting labs* is not fasting but will still get labs done today refuses lab draw}}. Additional concerns: {{none as noted below*}}Pt states she thinks her hormones are off because her period is very irregular. [facility] He/she {{does* does not}} feel like symptoms are well controlled. Current ADHD medication(s) include {{ buproprion#}}. Medication {{is taken daily is taken only on school or work days is taken only prn}}. Specific concerns are {{ n/a#}}.Additiona l symptoms are as follows:difficulty sleeping: {{yes no*}}palpitat ions: {{yes no*}}decrease d appetite: {{yes no*}}irritabi lity: {{yes* no}} Patient is here to f/nxiety and depression. Since the last visit for this issue, her/his symptoms are {{worsening improvi ng* stable}}. Patient is {{consistently with taking medication daily* not consistent with medication daily isn't on medication for anxiety}}. Current concerns include {{ n/a#}}. Patient is currently engaged in the following to help anxiety:counseling: {{yes no*}}regular exercise: {{yes no*}}meditati on: {{yes no*}}She states she is doing well. She feels the wellbutrin has really helped at the higher doses. Asthma:Doing well. Not having to use her inhaler much but she thinks it is /she needs a refill. Diann Escalera MD [address], [place], [address], [facility] 08/16/2023 11:51:13 02/29/2024 text/html Name, , Addre ss match profile {{yes* no}}Same insurance {{yes* no}}Currentl y in [place] {{yes* no}} Time on phone: 4 min 12 seconds Anxiety/Depression: Patient is here to [place] and depression. Since the last visit for this issue, her/his anxiety symptoms are {{worsening improvi ng stable*}}. Her/his depression symptoms are {{worsening improvi ng stable*}}. Patient is {{consistently with taking medication daily* not consistent with medication daily isn't on medication for anxiety or depression}}. Patient is currently engaged in the following to help anxiety/depression: counseling: {{yes no*}}regular exercise: {{yes* no}}being engaged in hobbies or interests:{{yes* no }}support from family and friends: {{yes* no}}She is wondering if she has PMDD. She has been reading about this and thinks that she has symptoms of this and wonders if we should explore this treatment. States she feels over-stimulated with sights and sounds. Says she will feel like lit dynamite when things happen that irritate or annoy her. Reports she still has mood swings out of nowhere with no apparent reason. States her period varies a lot so hard to tell if her mood varies with her menstrual cycle. Having a lot of fatigue & napping a lot. Her boyfriend made her promise to discuss this. She realizes this could be a lot of different things. [facility] He/she {{does* does not}} feel like symptoms are well controlled. Specific concerns are {{ n/a#}}.Current ADHD medication(s) include {{ wellbutrin 300 mg#}}. 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 She says she doesn't like traveling or [place] but overall had fun. Asthma:Patient presents for a f/u on their asthma. He/ She reports their symptoms {{controlled* uncon trolled}}. They {{are* are not}} on a preventative medication. They {{take* do not take}} take their medication as prescribed. On average they are using their rescue inhaler {{0 1* 2 or more}} times over the past week. Diann Escalera MD [address], [place], [address], [facility] 03/01/2024 22:12:58 OBGyn Episode No OBEpisode recorded.
--- OUTSIDE RECORDS SUMMARY | 2024-09-15 20:43 | XMS_ITS | Encounter Summary ---
Author Organization [facility] Address [address] [place] [address] [place] [address] Care Team Providers Care Position Clerk Name Role Phone Gudelia Chou MD Primary Care Provider [phone] Encounter Details Date Type Department Care Team (Late st Contact Info) Description 04/09/2020 Community Orders [facility] Gudelia Chou MD [address] [place] [address] Snoring (Primary Dx) Social History Tobacco Use Types Packs/Day Years Used Date Smoking Tobacco: Never Smokeless Tobacco: Never Sex and Gender Information Value Date Recorded Sex Assigned at Not on file Gender Identity Not on file Sexual Orientation Not on file documented as of this encounter Plan of Treatment Not on file documented as of this encounter Visit Diagnoses Diagnosis Snoring- Primary documented in this encounter Additional Health Concerns Infection Onset Date Last Indicated Resolved Time COVID (Suspected) 01/21/2021 01/21/2021 01/21/2021 9:11 AM CDT documented as of this encounter Care Teams Position Clerk Relationship Specialty Start Date End Date Gudelia Chou MD [address] [place] [address] PCP - General General Pediatrics 01/21/21 documented as of this encounter
--- OUTSIDE RECORDS SUMMARY | 2024-09-15 20:43 | XMS_ITS | Clinical Summary ---
Author Organization [facility] Address [address] [place] [address] [place] [address] Care Team Providers Care Nurse Transition Name Role Phone Gudelia Chou MD Primary Care Provider [phone] Allergies Active Allergy Reactions Criticality Noted Date Comments Fexofenadine Other (see comments) 01/21/2021 Mood swings/depressive state Sertraline Anaphylaxis High 01/21/2021 Medications Medication Sig Dispensed Refills Start Date End Date Status IBUPROFEN (MOTRIN ORAL) Take by mouth as needed. 06/01/2012 Active levalbuterol (XOPENEX HFA) 45 mcg/actuation inhaler INHALE 2 PUFFS BY MOUTH EVERY 4 TO 6 HOURS NEEDED 0 06/02/2019 Active DYMISTA 137-50 mcg/spray spray,non-aerosol INHALE SPRAY INTO EACH NOSTRIL TWICE DAILY 0 06/02/2019 Active atomoxetine (STRATTERA) 40 mg capsule TAKE 1 CAPSULE BY MOUTH EVERY DAY FOR 7 DAYS. INCREASE TO 2 TABLET EVERY DAY 01/16/2021 Active clindamycin (CLEOCIN T) 1 % external solution APPLY TO ACNE PRONE AREAS 1-2 TIMES DAILY 10/31/2020 Active Children's Flonase Sensimist 27.5 mcg/actuation nasal spray Administer 2 sprays into each nostril daily. shake before using 11/04/2020 Active naproxen (NAPROSYN) 375 mg tablet TAKE 2 TABLETS BY MOUTH AT ONSET AND THEN 1 TABLET BY MOUTH EVERY 6 TO 8 HOURS NEEDED FOR CRAMPS 12/21/2020 Active olopatadine 0.6 % spray,non-aerosol Administer 1 spray into each nostril 2 times a day. 11/04/2020 Active tretinoin (RETIN-A) 0.025 % cream APPLY A PEA SIZE AMOUNT TO FACE EVERY THIRD NIGHT UNTIL TOLERATED NIGHTLY 10/31/2020 Active Active Problems Problem Noted Date Diagnosed Date Closed fracture of distal end of radius Overview (05/04/2017): left Start Date: 05/24/2012 Social History Tobacco Use Types Packs/Day Years Used Date Smoking Tobacco: Never Smokeless Tobacco: Never Sex and Gender Information Value Date Recorded Sex Assigned at Not on file Gender Identity Not on file Sexual Orientation Not on file Last Filed Vital Signs Vital Sign Reading Time Taken Comments Blood Pressure 98/64 01/21/2021 8:32 AM CDT Pulse 78 01/21/2021 8:32 AM CDT Temperature 36.1 C (96.9 F) 01/21/2021 8:32 AM CDT Respiratory Rate 18 01/21/2021 8:32 AM CDT Oxygen Saturation 98% 01/21/2021 8:32 AM CDT Inhaled Oxygen Concentration - - Weight 63.5 kg (140 lb) 01/21/2021 8:32 AM CDT Height 160 cm (5' 3 ) 01/21/2021 8:32 AM CDT Body Mass Index 24.8 01/21/2021 8:32 AM CDT Plan of Treatment Health Maintenance Due Date Last Done Comments Chlamydia/Gonorrhea Screen 2003 HIV Screening 2003 Well Child Check (EPSDT) 07/04/2006 DTaP,Tdap,and Td Vaccines (1 - Tdap) 2010 Varicella Vaccine (1 of 2 - 13+ 2-dose series) 2016 HPV Vaccines (1 - 3-dose series) 2018 Meningococcal B Vaccine (1 o f 2 - Patient Seeks Protection) 2019 Hepatitis B Vaccines (1 of 3 - 19+ 3-dose series) 2022 Hepatitis C Screening 2022 COVID-19 Vaccine (3 - 2023-2 5 season) 2024 11/25/2020, 11/04/2020 Influenza Vaccine (#1) 2024 04/29/2013 Pap Smear 2024 HIB Vaccines Aged Out No longer eligi ble based on patient's age to complete this topic IPV Vaccines Aged Out No longer eligi ble based on patient's age to complete this topic Meningococcal ACWY Vaccine Aged Out N o longer eligible based on patient's age to complete this topic Pneumococcal Vaccine: Pediatric (0-5 yrs) and At-Risk (6-49 yrs) Aged Out No longer eligible b ased on patient's age to complete this topic Care Teams Nurse Transition Relationship Specialty Start Date End Date Gudelia Chou MD [address] [place] [address] PCP - General General Pediatrics 01/21/21
[2024-09-15 21:22] VITALS: BP 112/66; PULSE 77; RESP 14; O2SAT 100
== END 2024-09-15 21:22 | disposition home or self-care (01) ==
PROVIDERS: Physician Assistant; Emergency Provider Emergency Medicine
DX: K52.9 Noninfective gastroenteritis and colitis, unspecified (principal); J45.909 Unspecified asthma, uncomplicated
CPT/HCPCS: 36415; 80053; 81001; 81025; 83690; 85025; 96361; 96374; 96375; 99284; A9270; J1885; J2405; J7030